=== PATIENT | female | born 1985 | race Hispanic/Latino ===

== ENCOUNTER 2019-03-06 23:37 | Emergency (ER) | payer BC ==
[~2019-03-06] VITALS: Ht 154.9 cm; Wt 52.2 kg
[~2019-03-06 23:37] MED LIST: AMOXICILLIN500 MG OR; AMOXICILLIN500 MG PO; BENZOYL PER EX; BIRTH CONTROL; CEPHALEXIN500 MG OR; CIPROFLOXACN500 MG PO; DEPO-PROVER150 MG/M1 IM; DOXYCYCL HYC100 MG PO; LORTAB 5 OR; LORTAB5 OR; MIRALAX3350 N1 PO; NO HOME MEDS; NORCO1 TA1 PO; PRENATABS PO; PRENATAL1 TAB OR; ULTRAM50 M1 PO
[2019-03-07 00:29] LABS: URINE BILIRUBIN - DIPSTICK NEGATIVE (NEGATIVE); URINE BLOOD DIPSTICK NEGATIVE (NEGATIVE); URINE COLOR YELLOW; URINE GLUCOSE - DIPSTICK NEGATIVE (NEGATIVE); URINE KETONE NEGATIVE (NEGATIVE); URINE LEUK ESTERASE NEGATIVE (NEGATIVE); URINE NITRITE - DIPSTICK NEGATIVE (Negative); URINE PH 6.5 (4.5-8.0); URINE PROTEIN - DIPSTICK NEGATIVE (NEG-TRACE); URINE UROBILINOGEN - DIPSTICK 0.2 E.U./dL (0.2)
[2019-03-07] MEDS ORDERED: KEFLEX500 M1 PO (01:00)
[2019-03-07] MEDS ORDERED: NAPROXEN500 MG PO (01:00)
[2019-03-07] MEDS ORDERED: FLEXERIL PO (01:24)
[2019-03-07] MEDS ORDERED: ULTRAM50 M1 PO (01:24)
[2019-03-07 01:40] VITALS: BP 112/57
== END 2019-03-07 01:40 | disposition home or self-care (01) | DRG 153 ==
LOC: ED 23:37
PROVIDERS: Emergency Medicine
DX: J06.9 Acute upper respiratory infection, unspecified (principal); M51.9 Unspecified thoracic, thoracolumbar and lumbosacral intervertebral disc disorder

== ENCOUNTER 2019-05-27 | Emergency (ER) | payer BC ==
[~2019-05-27] MED LIST changes: +FLEXERIL PO; +KEFLEX500 M1 PO; +NAPROXEN500 MG PO
== END 2019-05-27 01:28 | disposition home or self-care (01) | DRG 153 ==
DX: J06.9 Acute upper respiratory infection, unspecified (principal)

== ENCOUNTER 2022-07-17 08:59 | Emergency (ER) | payer OTHER ==
[~2022-07-17] VITALS: Ht 157.5 cm; Wt 61.6 kg
[2022-07-17] MEDS ORDERED: CODEINE/GUAIFEN1 SOL PO (10:29)
[2022-07-17 10:46] VITALS: BP 119/77
== END 2022-07-17 10:58 | disposition home or self-care (01) ==
LOC: ED 08:59
DX: J06.9 Acute upper respiratory infection, unspecified (principal); Z20.822 Contact with and (suspected) exposure to COVID-19

== ENCOUNTER 2022-08-25 07:28 | Day surgery (SDC) | payer OTHER ==
[~2022-08-25 07:28] MED LIST changes: +CODEINE/GUAIFEN1 SOL PO
[2022-08-25] MEDS ORDERED: PERCOCET 5/321 COMBO PO (09:45)
[2022-08-25 14:08] VITALS: BP 108/64
== END 2022-08-25 11:45 | disposition home or self-care (01) ==
LOC: ORM 07:28
PROVIDERS: ATTEND Surgery
DX: K80.10 Calculus of gallbladder with chronic cholecystitis without obstruction (principal)
CPT/HCPCS: J0690; J1100; J1610; J2710; Q9966